=== PATIENT | male | born 1980 | race Two or more races ===

== ENCOUNTER 2024-04-16 10:16 | Inpatient (IN) | payer OTHER ==
[2024-04-16] MEDS ORDERED: BENZONATATE 200 MG CAPSULE PO PRN (11:15)
[2024-04-16] MEDS ORDERED: BISMUTH SUBSALICYLATE 262 MG/15 ML BTL PO PRN (11:15)
[2024-04-16] MEDS ORDERED: ONDANSETRON *ODT* 4 MG TABLET SL PRN (11:15)
[2024-04-16] MEDS ORDERED: LOPERAMIDE HCL 2 MG CAPSULE PO PRN (11:15)
[2024-04-16] MEDS ORDERED: guaiFENesin 600 MG TABLET.ER (FP) PO PRN (11:15)
[2024-04-16] MEDS ORDERED: DOCUSATE SODIUM 100 MG CAPSULE (FP) PO PRN (11:15)
[2024-04-16] MEDS ORDERED: NICOTINE POLACRILEX 2 MG LOZENGE BC PRN (11:15)
[2024-04-16] MEDS ORDERED: ACETAMINOPHEN 325 MG TABLET (FP) PO PRN (11:15)
[2024-04-16] MEDS ORDERED: BENZOCAINE/MENTHOL (CHLORASEPTIC ) LOZENGE MM PRN (11:15)
[2024-04-16] MEDS ORDERED: MAGNESIUM HYDROX 2400MG/30ML ORAL SUSPENSION 30 ML CUP PO PRN (11:15)
[2024-04-16] MEDS ORDERED: NICOTINE POLACRILEX 2 MG GUM BUC PRN (11:15)
[2024-04-16] MEDS ORDERED: BISACODYL 5 MG TABLET.DR (FP) PO PRN (11:15)
[2024-04-16] MEDS ORDERED: MAG HYDROX/AL HYDROX/SIMETH 30 ML UNIT-DOSE CUP PO PRN (11:15)
[2024-04-16] MEDS ORDERED: POLYETHYLENE GLYCOL (HEALTHYLAX) 3350 17 GM PACKET PO PRN (11:15)
[2024-04-16] MEDS ORDERED: DICYCLOMINE HCL 10 MG CAPSULE PO PRN (11:15)
[2024-04-16] MEDS ORDERED: NALOXONE (NARCAN) HCL 4 MG/0.1 ML SPRAY NS PRN (11:15)
[2024-04-16] MEDS ORDERED: IBUPROFEN 400 MG TABLET (FP) PO PRN (11:15)
[2024-04-16] MEDS ORDERED: methaDONE HCL 10 MG TABLET (FOR DETOX USE ONLY) PO ONE (11:16)
[2024-04-16] MEDS ORDERED: cloNIDine HCL 0.1 MG TABLET PO PRN (11:16)
[2024-04-16] MEDS ORDERED: methaDONE HCL 10 MG TABLET (FOR DETOX USE ONLY) ONE (12:09)
[2024-04-16] MEDS ORDERED: METHOCARBAMOL 500 MG TABLET ONE (12:09)
[2024-04-16] MEDS: METHOCARBAMOL 500 MG TABLET PO PRN (12:11)
[2024-04-16] MEDS: methaDONE HCL 10 MG TABLET (FOR DETOX USE ONLY) PO ONE (12:12)
[2024-04-16 13:08] VITALS: BMI 21.2
[2024-04-16] MEDS: THIAMINE 100 MG TABLET PO SCH (21:06)
[2024-04-16] MEDS: MELATONIN 5 MG TABLETS PO SCH (21:06)
[2024-04-17] MEDS: PRENATAL VITAMINS W/ FOLIC ACID TABLET (FP) PO SCH (09:12)
[2024-04-17] MEDS: FLU VACCINE (FLULAVAL) PF 45 MCG/0.5 ML SYRINGE 2024-2025 IM ONE (11:18)
[2024-04-17 12:34] LABS: POTASSIUM 4.5 mmol/L (3.5-5.1)
[2024-04-17 12:36] LABS: ALBUMIN 3.6 g/dl (3.4-5.0)
[2024-04-17 12:38] LABS: BLOOD UREA NITROGEN 13.5 mg/dL (7-18)
[2024-04-17 12:40] LABS: CREATININE 1.3 mg/dL (0.55-1.3)
[2024-04-17 12:41] LABS: BILIRUBIN,TOTAL 0.4 mg/dL (0.2-1)
[2024-04-17 12:46] LABS: HEMATOCRIT 43.9 % (35.4-49); HEMOGLOBIN 14.7 GM/dL (11.7-16.9); MCHC 33.4 g/dl (32.0-35.9); MEAN CELL VOLUME 86.9 fl (80-96); MEAN PLT VOLUME 9.4 fl (7.5-11.1); PLATELET COUNT 259 10^3/uL (134-434); RBC 5.06 M/mm3 (4.00-5.60); RDW 13.8 % (11.9-15.9); WHITE BLOOD COUNT 9.9 K/mm3 (4.0-10.0)
[2024-04-17] MEDS: traZODone HCL 50 MG TABLET (FP) PO SCH (22:10)
[2024-04-18] MEDS: methaDONE HCL 10 MG TABLET (FOR DETOX USE ONLY) PO ONE (09:50)
[2024-04-19] MEDS: IBUPROFEN 600 MG TABLET (FP) PO PRN (10:14)
[2024-04-20] MEDS: methaDONE HCL 10 MG TABLET (FOR DETOX USE ONLY) PO ONE (09:49)
[2024-04-20 20:19] VITALS: RESP 16
[2024-04-20] MEDS: traZODone HCL 50 MG TABLET (FP) PO SCH (21:28)
[2024-04-20] MEDS: hydrOXYzine PAMOATE 25 MG CAPSULE (FP) PO PRN (21:29)
[2024-04-21 09:03] VITALS: BP 104/66; PULSE 96; TEMP 98.6
== END 2024-04-21 10:41 | disposition home or self-care (01) | DRG 773 ==
LOC: YASAS 10:16 → Y3N 11:50
PROVIDERS: ADMIT Allergy & Immunology; ATTEND Allergy & Immunology
PROC: HZ2ZZZZ Detoxification Services for Substance Abuse Treatment (ICD-10-PCS; principal; 2024-04-16)
DX: F11.23 Opioid dependence with withdrawal (principal); F14.20 Cocaine dependence, uncomplicated; F12.20 Cannabis dependence, uncomplicated; F17.290 Nicotine dependence, other tobacco product, uncomplicated; F19.282 Other psychoactive substance dependence with psychoactive substance-induced sleep disorder; F19.24 Other psychoactive substance dependence with psychoactive substance-induced mood disorder; F32.A Depression, unspecified; F41.9 Anxiety disorder, unspecified; G47.00 Insomnia, unspecified; Z56.0 Unemployment, unspecified; Z59.01 Sheltered homelessness
CPT/HCPCS: 36415; 80053; 80305; 80307; 85027; 86780; 93005; 93010

== ENCOUNTER 2024-04-26 16:07 | Inpatient (IN) | payer OTHER ==
[2024-04-26 16:28] VITALS: BMI 22.1
[2024-04-26] MEDS ORDERED: cloNIDine HCL 0.1 MG TABLET PO PRN (17:14)
[2024-04-26] MEDS ORDERED: NICOTINE POLACRILEX 2 MG LOZENGE BC PRN (17:16)
[2024-04-26] MEDS ORDERED: guaiFENesin 600 MG TABLET.ER (FP) PO PRN (17:16)
[2024-04-26] MEDS ORDERED: IBUPROFEN 600 MG TABLET (FP) PO PRN (17:16)
[2024-04-26] MEDS ORDERED: ACETAMINOPHEN 325 MG TABLET (FP) PO PRN (17:16)
[2024-04-26] MEDS ORDERED: BENZONATATE 200 MG CAPSULE PO PRN (17:16)
[2024-04-26] MEDS ORDERED: LOPERAMIDE HCL 2 MG CAPSULE PO PRN (17:16)
[2024-04-26] MEDS ORDERED: POLYETHYLENE GLYCOL (HEALTHYLAX) 3350 17 GM PACKET PO PRN (17:16)
[2024-04-26] MEDS ORDERED: ONDANSETRON *ODT* 4 MG TABLET SL PRN (17:16)
[2024-04-26] MEDS ORDERED: MAG HYDROX/AL HYDROX/SIMETH 30 ML UNIT-DOSE CUP PO PRN (17:16)
[2024-04-26] MEDS ORDERED: NALOXONE (NARCAN) HCL 4 MG/0.1 ML SPRAY NS PRN (17:16)
[2024-04-26] MEDS ORDERED: BISMUTH SUBSALICYLATE 524 MG/30 ML PO PRN (17:16)
[2024-04-26] MEDS ORDERED: NICOTINE POLACRILEX 2 MG GUM BUC PRN (17:16)
[2024-04-26] MEDS ORDERED: DICYCLOMINE HCL 10 MG CAPSULE PO PRN (17:16)
[2024-04-26] MEDS ORDERED: IBUPROFEN 400 MG TABLET (FP) PO PRN (17:16)
[2024-04-26] MEDS ORDERED: BENZOCAINE/MENTHOL (CHLORASEPTIC ) LOZENGE MM PRN (17:16)
[2024-04-26] MEDS ORDERED: P-EPHED 60MG/TRIPROLIDI 2.5MG TABLET PO PRN (17:16)
[2024-04-26] MEDS ORDERED: methaDONE HCL 10 MG TABLET PO PRN (17:35)
[2024-04-26] MEDS ORDERED: methaDONE HCL 10 MG TABLET (FOR DETOX USE ONLY) ONE (17:44)
[2024-04-26] MEDS: methaDONE HCL 10 MG TABLET PO PRN (17:48)
[2024-04-26] MEDS: METHOCARBAMOL 500 MG TABLET PO PRN (22:38)
[2024-04-26] MEDS: MELATONIN 5 MG TABLETS PO SCH (22:38)
[2024-04-26] MEDS: THIAMINE 100 MG TABLET PO SCH (22:38)
[2024-04-27] MEDS: PRENATAL VITAMINS W/ FOLIC ACID TABLET (FP) PO SCH (09:24)
[2024-04-27] MEDS ORDERED: methaDONE HCL 40 MG DISPERSABLE TABLET PO ONE (10:00)
[2024-04-27] MEDS: QUEtiapine FUMARATE 50 MG TABLET PO SCH (22:02)
[2024-04-28] MEDS: methaDONE HCL 40 MG DISPERSABLE TABLET PO ONE (09:29)
[2024-04-28] MEDS: diazePAM 5 MG TABLET PO PRN (22:23)
[2024-04-29] MEDS ORDERED: methaDONE HCL 40 MG DISPERSABLE TABLET PO ONE (10:00)
[2024-04-29] MEDS: BACITRACIN 0.9 GM PACKET TP SCH (12:26)
[2024-04-29] MEDS: MAGNESIUM HYDROX 2400MG/30ML ORAL SUSPENSION 30 ML CUP PO PRN (15:07)
[2024-04-30 06:06] VITALS: RESP 17
[2024-04-30 09:07] VITALS: BP 126/90; PULSE 89; TEMP 98.1
[2024-04-30] MEDS: methaDONE 40 MG, methaDONE 10 MG PO ONE (09:53)
[2024-04-30] MEDS ORDERED: methaDONE HCL 40 MG DISPERSABLE TABLET PO ONE (10:00)
== END 2024-04-30 09:55 | disposition home or self-care (01) | DRG 773 ==
LOC: YASAS 16:07 → Y6N 17:36
PROVIDERS: ADMIT Allergy & Immunology; ATTEND Allergy & Immunology
PROC: HZ2ZZZZ Detoxification Services for Substance Abuse Treatment (ICD-10-PCS; principal; 2024-04-26)
DX: F11.23 Opioid dependence with withdrawal (principal); F14.20 Cocaine dependence, uncomplicated; F12.20 Cannabis dependence, uncomplicated; F17.210 Nicotine dependence, cigarettes, uncomplicated; F19.24 Other psychoactive substance dependence with psychoactive substance-induced mood disorder; F32.A Depression, unspecified; Z59.01 Sheltered homelessness
CPT/HCPCS: 80305; 80307